=== PATIENT | male | born 1965 | race Caucasian/White ===

== ENCOUNTER 2016-07-15 15:23 | Emergency (ER) | payer OTHER ==
--- NOTE | 2016-07-15 15:35 | PDOC ---
History of Present Illness - General Chief Complaint: Chest Pain Stated Complaint: CHEST PAIN Time Seen by Provider: 07/15/16 15:33 History Source: Patient - History of Present Illness Presenting Symptoms: Chest Pain Timing/Duration: reports: constant Severity/Quality: reports: moderate Chest Pain Radiation: reports: no radiation Past History - Past Medical History Allergies/Adverse Reactions: Allergies Allergy/AdvReac Type Severity Reaction Status Date / Time Penicillins Allergy Hives Verified 07/15/16 15:41 Home Medications: Ambulatory Orders NK [No Known Home Medication] 07/15/16 - Immunization History Td Vaccination: Yes Immunization Up to Date: Yes - Psycho/Social/Smoking Cessation Hx Suicidal Ideation: No Smoking Status: No Number of Cigarettes Smoked Daily: 0 Review of Systems - Review of Systems Constitutional: No: Chills, Fever Respiratory: No: Cough, Shortness of Breath Cardiac (ROS): Yes: Chest Pain, Chest Tightness. No: Lightheadedness, Palpitations, Syncope *Physical Exam - Vital Signs Last Vital Signs Temp Pulse Resp BP Pulse Ox 97.8 F 97 H 17 142/73 98 07/15/16 15:33 07/15/16 16:31 07/15/16 16:31 07/15/16 16:31 07/15/16 16:31 - Physical Exam General Appearance: Yes: Appropriately Dressed. No: Apparent Distress HEENT: positive: Normal Voice Neck: positive: Supple Respiratory/Chest: positive: Lungs Clear, Normal Breath Sounds. negative: Respiratory Distress Cardiovascular: positive: S1, S2, Tachycardia Gastrointestinal/Abdominal: positive: Soft. negative: Tender Extremity: positive: Normal Inspection. negative: Pedal Edema Integumentary: positive: Dry, Warm Neurologic: positive: Fully Oriented, Alert, Normal Mood/Affect Heart Score/ECG Review - History History: Slightly suspicious - Electrocardiogram EKG: Normal - Age Age: 45-65 - Risk Factors Risk Factors Heart Score: Yes Hx Obesity Based on the list above the patient has:: 1-2 risk factors - Troponin Troponin: </= normal limit - Score Heart Score - Total: 2 - ECG Intrepretation Comment:: 07/15/16 16:24 Twelve-lead EKG was performed and reviewed by me. There is normal sinus rhythm with a normal rate. The axis is normal. The intervals are normal. There are no ST or T wave abnormalities. Impression: Normal twelve-lead EKG ED Treatment Course - LABORATORY CBC & Chemistry Diagram: 07/15/16 15:36 07/15/16 15:36 - ADDITIONAL ORDERS Additional order review: Laboratory Results 07/15/16 07/15/16 15:50 15:36 D-Dimer < 200 Sodium 141 Potassium 4.2 Chloride 103 Carbon Dioxide 27 Anion Gap 11 BUN 10 Creatinine 1.2 Creat Clearance w eGFR > 60 Random Glucose 257 H Calcium 8.8 Total Bilirubin 0.4 AST 19 ALT 38 Alkaline Phosphatase 141 H Creatine Kinase 179 Creatine Kinase Index 0.6 CK-MB (CK-2) 1.119 Troponin I < 0.02 B-Natriuretic Peptide 12.74 Total Protein 7.3 Albumin 3.7 07/15/16 15:36 RBC 5.21 MCV 88.8 MCHC 34.3 RDW 13.2 MPV 7.9 Neutrophils % 62.7 Lymphocytes % 28.1 Monocytes % 6.8 Eosinophils % 1.3 Basophils % 1.1 - RADIOLOGY Radiology Studies Ordered: Category Date Time Status CHEST X-RAY PORTABLE* [RAD] Stat Radiology 07/15/16 15:34 Taken Medical Decision Making - Medical Decision Making 07/15/16 15:44 51-year-old male, denies any past medical history, here with chest pain. Patient reports non-radiating left-sided chest pain 5 days. "Feels like someone squeezing my chest" as per patient, 7/10 in intensity, constant, with no alleviating or worsening factors. Denies any shortness of breath, diaphoresis, nausea, vomiting, palpitations, leg pain or swelling. No history of similar pain. Last stress test 3 years ago was negative as per patient. No obvious risk factors for DVT/PE. No illicit drug use. See exam Chest pain Not great story for ACS No RFs for DVT/PE Tachy and hypertensive in ED w/ unremarkable exam otherwise R/o ACS vs PE given tachycardia -manage elevated BP -ekg -labs including ddimer -cxr -dispo pending 07/15/16 16:25 07/15/16 16:31 07/15/16 16:37 Labs/EKG/CXR unremarkable. Heart score 0-3%. Asx currently w/ improvement of vitals without any intervention. Will d/c to f/u with PMD 03/26/17 16:40 *DC/Admit/Observation/Transfer Diagnosis at time of Disposition: Chest pain Qualifiers: Chest pain type: unspecified Qualified Code(s): R07.9 - Chest pain, unspecified - Discharge Dispostion Disposition: HOME Condition at time of disposition: Improved - Patient Instructions Printed Discharge Instructions: DI for Atypical Chest Pain Additional Instructions: Please follow up with your PMD
[2016-07-15 15:41] VITALS: TEMP 97.8; BMI 38.3
[2016-07-15 15:44] LABS: BASOPHIL 1.1 % (0-2.0); EOSINOPHIL 1.3 % (0-4.5); MCH 30.5 pg (25.7-33.7); MCHC 34.3 g/dl (32.0-35.9); MEAN CELL VOLUME 88.8 fl (80-96); MEAN PLT VOLUME 7.9 fl (7.5-11.1); NEUTROPHILS 62.7 % (42.8-82.8); PLATELET COUNT 267 K/MM3 (134-434); RDW 13.2 % (11.9-15.9); WHITE BLOOD COUNT 9.5 K/mm3 (4.0-10.0)
[2016-07-15 16:06] LABS: ALBUMIN 3.7 g/dl (3.4-5.0); ANION GAP 11 (8-16); BILIRUBIN,TOTAL 0.4 mg/dL (0.2-1.0); CALCIUM 8.8 mg/dL (8.5-10.1); CO2 27 mmol/L (21-32); CREATININE 1.2 mg/dL (0.7-1.3); GLUCOSE,RANDOM 257 mg/dL (74-106); SGOT/AST 19 U/L (15-37); SGPT/ALT 38 U/L (12-78); TOT PROT 7.3 g/dl (6.4-8.2)
[2016-07-15 16:08] LABS: ALK PHOS 141 U/L (45-117); TROPONIN I < 0.02 ng/ml (0.00-0.05)
[2016-07-15 16:32] VITALS: BP 142/73; PULSE 97
--- NOTE | 2016-07-15 22:27 | EKG ---
Test Reason : Blood Pressure : / mmHG Vent. Rate : 109 BPM Atrial Rate : 109 BPM P-R Int : 136 ms QRS Dur : 086 ms QT Int : 340 ms P-R-T Axes : 057 068 058 degrees QTc Int : 457 ms SINUS TACHYCARDIA POSSIBLE LEFT ATRIAL ENLARGEMENT BORDERLINE ECG WHEN COMPARED WITH ECG OF 24-JAN-2011 12:14, NO SIGNIFICANT CHANGE WAS FOUND Confirmed by ROSLYN VÁSQUEZ MD ([id number]) on 07/15/2016 10:26:35 PM Referred By: Confirmed By:ROSLYN VÁSQUEZ MD
== END 2016-07-15 16:53 | disposition home or self-care (01) ==
LOC: JER 15:23
DX: R07.9 Chest pain, unspecified (principal)
CPT/HCPCS: 36415; 71010-TC; 80053; 82550; 82553; 83880; 84484; 85025; 85379; 93005; 93010; 99284-25